=== PATIENT | male | born 1950 | race Caucasian/White ===

== ENCOUNTER 2017-11-16 12:43 | Outpatient (CLI) | END 2017-11-16 12:44 | disposition home or self-care (01) | LOC: LAB 12:43 | PROVIDERS: ATTEND Family Medicine | DX: E78.00 Pure hypercholesterolemia, unspecified (principal); N18.3 Chronic kidney disease, stage 3 (moderate); Z86.39 Personal history of other endocrine, nutritional and metabolic disease | CPT/HCPCS: 36415; 80053; 80061; 85025 ==

== ENCOUNTER 2017-12-14 13:07 | Outpatient (CLI) | END 2017-12-14 13:08 | disposition home or self-care (01) | LOC: FCC-LAB 13:07 | PROVIDERS: ATTEND Family Medicine | DX: N18.3 Chronic kidney disease, stage 3 (moderate) (principal) | CPT/HCPCS: 36415; 80048 ==